=== PATIENT | female | born 1940 ===

== ENCOUNTER 2018-02-20 22:06 | Emergency (ER) | payer OTHER ==
[~2018-02-20] VITALS: Ht 160 cm; Wt 63.5 kg
[~2018-02-20 22:06] MED LIST: LEVAQUIN500 MG PO; LEVAQUIN750 MG PO; PROVENTIL3 ML/2.5 M; PULMICORT1 MG/2 ML; TESSALON PERLE100 MG PO; TUSSI PRES-B L120 M1 PO; XANAX XR0.5 MG
== END 2018-02-21 02:38 | disposition home or self-care (01) ==
LOC: ER 22:06
DX: R07.89 Other chest pain (principal); R42 Dizziness and giddiness; R06.02 Shortness of breath; T58.14XA Toxic effect of carbon monoxide from utility gas, undetermined, initial encounter; Y92.010 Kitchen of single-family (private) house as the place of occurrence of the external cause